=== PATIENT | female | born 1985 | race Caucasian/White ===

== ENCOUNTER 2017-07-01 20:19 | Emergency (ER) | payer MEDICAID, SELFPAY ==
[2017-07-01 20:21] VITALS: BP 147/98; PULSE 87; RESP 16; TEMP 36.5; O2SAT 97; BMI 38.1
--- NOTE | 2017-07-01 20:29 | ED.RN ---
RN BRIEFLY DISCUSSED PT SX WITH DR. CARDOSO. VERBAL ORDER FOR FLU SWAB GIVEN.
--- NOTE | 2017-07-01 20:33 | RAD_ITS ---
STUDY: X-RAY CHEST REASON FOR EXAM: Female, 31 years old. Influenza TECHNIQUE: PA COMPARISON: None. FINDINGS: There is asymmetric interstitial thickening in the right lower lobe possibly representing interstitial pneumonitis. There is no focal lobar infiltrate. There is no demonstrated pleural abnormality. Normal size heart. Normal mediastinum and rahat. Normal visualized pulmonary arteries. Normal visualized aortic arch and descending thoracic aorta. Normal visualized thoracic spine. Normal visualized ribs, clavicles, and shoulders. There is no demonstrated abnormality of the visualized soft tissue structures of the upper abdomen. RAD/Chest 1 View (Portable) IMPRESSION: Findings which may be consistent with mild viral pneumonitis in the right lower lobe Electronically Signed: Jamal Brown MD at 21:10 EST , Service support ,
--- NOTE | 2017-07-01 22:45 | ED.VISSUMM ---
- ER Visit Summary Date of Service: 07/01/17 Chief Complaint: Cough History of Present Illness: The patient is a 31 F who sees the [facility]. She does not remember the name of her doctor. She reports she has a cough began 2 days ago. Is productive of yellow sputum without blood. She has had chills, but no fever. She reports that she has mild difficulty breathing and that she is not able to smoke as much. She has been wheezing. She does not use an inhaler. She complains of congestion, sinus drainage, sore throat that is 7 out of 10 severity, a headache that is behind her eyes that is 7 out of 10 severity, and watery eyes. Physical Examination: Vitals: Stable. Afebrile. General: Well-nourished and well-developed. Head: Normocephalic atraumatic. HEENT: Pharyngeal erythema without tonsillar exudate or enlargement. No cervical lymphadenopathy. TMs are within normal limits bilaterally. Neck: Supple, no lymphadenopathy. No JVD. Nontender. Cardiovascular: Regular rate and rhythm. No murmurs. Respiratory: No respiratory distress. Clear to auscultation bilaterally. Abdominal: Soft, nontender, nondistended, normal bowel sounds. No guarding, rebound, or peritoneal signs. Back: Nontender. Extremities: Nontender, no edema. Skin: Normal color, no rash. Neurologic: Alert and oriented ?3. Cranial nerves II through XII are intact. Normal strength and sensation. Psych: Normal affect. Test Results: Chest x-ray shows no infiltrate. Emergency Department Course and Treatment: Patient refused pain medications or decongestants. Treatment Plan: Patient will be discharged with an albuterol inhaler to use as needed for her wheezing. Symptomatic treatment otherwise. Follow-up her primary care physician 1 week if not improving. Disposition: To home in improved and stable condition. Impression:. URI. 2. Tobacco abuse. This note was generated with [employer] dictation software. It may contain incorrect words, spelling, and punctuation that were not noted in review of the chart prior to signing ED Disposition - Plan for ED Patient: Chief Complaint: Shortness of Breath Instructions: ED Upper Resp Infec No Abx Tx Prescriptions: Albuterol Inhaler [Ventolin Hfa] 1 - 2 puff INHALATION Q4H PRN PRN #1 inhaler PRN Reason: Wheezing Referrals: Doctor,Your [STAFF PHYSICIAN] - 1 Week if not improving
[2017-07-01 22:55] VITALS: O2SAT 96
[2017-07-01 22:58] VITALS: PULSE 86; RESP 18; O2SAT 100
== END 2017-07-01 23:10 | disposition home or self-care (01) ==
LOC: ED 23:07
PROVIDERS: Emergency Provider Emergency Medicine; Family Provider Family Medicine; PCP Family Medicine
DX: J06.9 Acute upper respiratory infection, unspecified (principal); Z72.0 Tobacco use
CPT/HCPCS: 71045; 87804; 94760; 99282

== ENCOUNTER 2018-06-27 21:40 | Emergency (ER) | payer MEDICAID, SELFPAY ==
[2018-06-27 21:43] VITALS: BP 120/81; PULSE 105; RESP 17; TEMP 36.7; O2SAT 98; BMI 39.3
--- NOTE | 2018-06-27 22:06 | ED.VISSUMM ---
- ER Visit Summary Date of Service: 06/27/18 Chief Complaint: Dental pain History of Present Illness: The patient is a 32 F with dental pain that started this morning. It came on gradually. The pain is increasing in severity and severe at times. Patient was seen at urgent care and treated with amoxicillin and ibuprofen. She presents today because her pain is not under control. She is concerned for infection. She does report some swollen lymph nodes and she says the pain radiates to her left ear. She is planning to follow-up with the dental clinic tomorrow. Physical Examination: Afebrile and vital signs unremarkable. Patient has focal dental decay. No abscess. No trismus or tongue elevation. Gums appear unremarkable. Airway intact. Left anterior cervical lymphadenopathy noted. No meningeal signs. HEENT exam otherwise on normal. Skin normal. Test Results: None performed Emergency Department Course and Treatment: Patient advised to continue antibiotics and ibuprofen. She was given a short course of Gooding for pain control. She had no risk factors and her prescription database report showed no active controlled substances. Follow-up with dental tomorrow. Treatment Plan: As above Disposition: Discharge Impression: 1. Dental pain This note was generated with [employer] dictation software. It may contain incorrect words, spelling, and punctuation that were not noted in review of the chart prior to signing ED Disposition - Plan for ED Patient: Instructions: ED Tooth Pain Prescriptions: Hydrocodone Bitart/Apap 5-325 [Gooding 5MG-325MG] 1 tab PO Q6H PRN PRN 2 Days #8 tab PRN Reason: Pain Referrals: Corin Car [NON-STAFF] -
--- NOTE | 2018-06-27 22:06 | ED.DEP ---
ED Disposition - Plan for ED Patient: Instructions: ED Tooth Pain Prescriptions: Hydrocodone Bitart/Apap 5-325 [Elizabeth 5MG-325MG] 1 tab PO Q6H PRN PRN 2 Days #8 tab PRN Reason: Pain Referrals: Corin Car [NON-STAFF] -
[2018-06-27] MEDS: HYDROcodone Bitartrate/Apap 5/325 Tablet PO (22:21)
== END 2018-06-27 22:31 | disposition home or self-care (01) ==
LOC: ED 22:30
PROVIDERS: Emergency Provider Emergency Medicine; Family Provider Family Medicine; PCP Family Medicine
DX: K08.89 Other specified disorders of teeth and supporting structures (principal); H92.02 Otalgia, left ear; K02.9 Dental caries, unspecified; Z72.0 Tobacco use; F12.90 Cannabis use, unspecified, uncomplicated
CPT/HCPCS: 99282

== ENCOUNTER 2018-11-23 21:58 | Emergency (ER) | payer MEDICAID, SELFPAY ==
[2018-11-23 21:59] VITALS: BP 124/77; PULSE 88; RESP 16; TEMP 36.2; O2SAT 99; BMI 39.5
--- NOTE | 2018-11-23 22:56 | ED.VISSUMM ---
- ER Visit Summary Date of Service: 11/23/18 Chief Complaint: Foreign body sensation right eye History of Present Illness: The patient is a 33 F who presents with foreign body sensation right eye. She felt like something with her eyes and it was itching and watering. She was rubbing it. After that time she developed increased swelling around her eyes so presented here for evaluation. No history of injury. She does not wear contacts or glasses. She denies any visual changes/blurry vision. Physical Examination: Afebrile vitals unremarkable Patient does have some right periorbital edema Eyelids everted, no foreign body Diffuse conjunctival injection on the right, no chemosis, no matting she does have some watering Slit-lamp examination with tetracaine and floor seen shows no focal dye uptake no corneal abrasion Extraocular motion intact without pain or palsy PERRL, EOMI Test Results: Slit-lamp examination as above. Emergency Department Course and Treatment: Examination is consistent with conjunctivitis. We will treat with ophthalmic antibiotics. She understands to return for new or worsening symptoms. She was instructed on signs and symptoms to monitor for, conditions which should prompt return here to the emergency department. Treatment Plan: [] Disposition: Discharge Impression: Conjunctivitis This note was generated with [employer] dictation software. It may contain incorrect words, spelling, and punctuation that were not noted in review of the chart prior to signing ED Disposition - Plan for ED Patient: Referrals: Jamal Almendarez MD [Primary Care Provider] -
--- NOTE | 2018-11-23 22:58 | ED.DEP ---
ED Disposition - Plan for ED Patient: Instructions: CONJUNCTIVITIS, Non-Specific Referrals: Jamal Almendarez MD [Primary Care Provider] -
[2018-11-23 23:09] VITALS: RESP 14
== END 2018-11-23 23:09 | disposition home or self-care (01) ==
PROVIDERS: Emergency Provider Emergency Medicine; Family Provider Family Medicine; PCP Family Medicine
DX: H10.9 Unspecified conjunctivitis (principal)
CPT/HCPCS: 99282

== ENCOUNTER 2019-04-22 11:24 | Emergency (ER) | payer MEDICAID, SELFPAY ==
[2019-04-22 11:25] VITALS: BP 160/103; PULSE 95; RESP 17; TEMP 37; O2SAT 100; BMI 38.3
--- NOTE | 2019-04-22 11:41 | CT_ITS ---
STUDY: CT BRAIN WITHOUT CONTRAST REASON FOR EXAM: Female, 33 years old. LT FACIAL NUMBNESS SINCE THIS AM/HX OF MENINGIOMA but no surgery RADIATION DOSAGE (If Supplied By Facility): CTDIvol = ( 44.99 ) mGy, DLP = ( 812.98 ) mGycm TECHNIQUE: Transaxial CT imaging of the brain was performed without administration of intravenous contrast material. Individualized dose optimization techniques were used for this CT. COMPARISON: No relevant priors. FINDINGS: Normal soft tissue structures. Normal calvarium. Normal size ventricles and extra-axial spaces for the patient''s age. Normal white matter tracts of the cerebral hemispheres. Normal basal ganglia and thalami. Normal brainstem. Normal cerebellum. There is no intracranial hemorrhage. There are no findings of an acute ischemic infarction. Normal visualized paranasal sinuses. CT/Brain/Head without Contrast IMPRESSION: Normal unenhanced CT scan of the brain. Electronically Signed: Alison Martinez, at 12:01 EST Tel , Service support ,
--- NOTE | 2019-04-22 11:51 | ED.VIS.GEN ---
History of Present Illness Chief Complaint: Numb/Ting Narrative: Patient presenting for evaluation secondary to facial numbness. Patient reports that this morning she woke up and noted that she had a feeling of the left side of her face including her left forehead left cheek and left jaw that feels numb. She states is a feeling as if she just had a dental procedure. She denies any weakness. She denies any difficulty with closing her eyes or drinking or swallowing. She denies any other numbness or weakness in her body. She denies any visual changes or speech difficulty. Patient does have an underlying history of a left-sided meningioma, but she has not had imaging on it since 2017. She has a history of migraine headaches, but states that she has not been having any sort of increased frequency of these. She denies any facial rashes or ear pain. Symptoms have no exacerbating relieving factors. Past Medical History - Allergies and Home Meds Allergies/Adverse Reactions: Allergies No Known Allergies Allergy (Verified 04/22/19 11:24) Primary Care Physician: Jamal Almendarez MD [Primary Care Provider] - Past Medical History: - - Meningioma Surgical History: no surgical history Smoking Status: Current every day smoker - Family History Maternal Family History: Reports: No pertinent history Review of Systems All systems negative except as indicated General: Denies: Chills, Fever, Sweats Eyes: Denies: Visual changes - bilaterally, Diplopia ENT: Denies: Rhinorrhea, Sore throat Cardiovascular: Denies: Chest pain, Palpitations Respiratory: Denies: Dyspnea, Cough, Dyspnea on exertion Gastrointestinal: Denies: Abdominal pain, Nausea, Vomiting, Diarrhea, Melena, Hematochezia Genitourinary: Denies: Dysuria, Hematuria, Frequency Musculoskeletal: Denies: Back pain, Extremity Pain Skin: Denies: Rash, Wounds Neurological: Reports: Parasthesia Physical Exam Vital Signs/Narrative: Vital Signs Temp Pulse Resp BP Pulse Ox 04/22/19 11:25 98.6 F 95 17 160/103 H 100 Inital Vital Signs reviewed: Yes General: Well nourished, Well developed, No Acute Distress Head: Normocephalic, Atraumatic Eyes: Perrl, EOMI ENT: Moist mucous membranes, No rhinorrhea, TM's clear Neck: Supple, Nontender Cardiovascular: Regular rate, Regular rhythm, No murmurs Respiratory: No distress, CTA bilaterally, Chest nontender Abdomen: Soft, Nontender, Nondistended, Normal bowel sounds Back: Nontender, Normal Inspection Extremities: Nontender, No edema Skin: Normal color, No rash Neurological: Alert, Oriented x3, Cranial nerves II-XII grossly intact, Normal Strength, - - Patient complains of paresthesias of the left forehead cheek and jaw. Normal symmetric movements of the facial muscles. No evidence of droop. Psychological: Normal affect, Normal Mood Diagnostic/Tx/Re-eval - Medical Decision Making Patient presented secondary to left-sided facial numbness. Aside from her reported paresthesias she has a normal neurologic exam. This would seem to be consistent maybe with a early Dalton's palsy, but the patient does have a history of a meningioma and has not had recent imaging, so CT of the brain was performed. This was found to be negative per radiology. 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 Patient will be placed on a course of prednisone. She was given eye care instructions should she develop weakness. Patient was discharged in stable condition. ED Disposition - Plan for ED Patient: Disposition: Home or Assisted Living Diagnosis: Dalton's palsy Instructions: Dalton's Palsy Prescriptions: Prednisone [Deltasone] 40 mg PO DAILY #14 tab Prescription Printed Referrals: Jamal Almendarez MD [Primary Care Provider] - As Needed
[2019-04-22 12:06] VITALS: BP 129/76; PULSE 90; RESP 16; O2SAT 100
== END 2019-04-22 12:26 | disposition home or self-care (01) ==
PROVIDERS: Emergency Provider Emergency Medicine; Family Provider Family Medicine; PCP Family Medicine
DX: G51.0 Bell's palsy (principal); F17.200 Nicotine dependence, unspecified, uncomplicated
CPT/HCPCS: 70450; 99282

== ENCOUNTER 2019-10-06 20:43 | Emergency (ER) | payer MEDICAID, SELFPAY ==
[2019-10-06 20:43] VITALS: BP 144/89; PULSE 89; RESP 18; TEMP 36.6; O2SAT 98; BMI 38.2
--- NOTE | 2019-10-06 20:58 | RAD_ITS ---
STUDY: X-RAY - LEFT KNEE REASON FOR EXAM: Female, 34 years old. PT STATES SHE HEARD HER L KNEE POP WHEN SHE WAS BENDING DOWN TECHNIQUE: 4 view(s) of the knee. COMPARISON: None. FINDINGS: Normal visualized distal femur. Normal visualized proximal tibia and fibula. Normal proximal tibiofibular articulation. Normal medial femorotibial compartment. Normal lateral femorotibial compartment. Normal patellofemoral articulation. The soft tissue structures are unremarkable. RAD/Knee 4 or More Views IMPRESSION: Normal x-ray examination of the knee. Electronically Signed: Steve Camejo MD at 21:22 EDT Tel , Service support ,
--- NOTE | 2019-10-06 22:32 | ED.VIS.LOWEX ---
History of Present Illness Chief Complaint: Lower Extremity Injury Informant: Patient Occurred: Days - 2 Mechanism/Context: - - Was crouching down in order to sit style Context: Sudden Onset - Daphne a pop or crack with sudden pain that has been persistent Timing: Continuous Quality of Pain: Aching Location: Left knee Current Severity: Mild Maximum Severity: Severe Worsened by: Bending knee, walking Relieved by: Resting, remaining still Associated Symptoms: Negative for: Parasthesia, Weakness, Loss of Funtion Narrative: Denies any other injury. No redness or significant swelling that she is noted. No numbness or tingling distally. No calf pain. - Past Medical History (1) Ureteral calculus, right Status: Suspected Comment: Presents to the hospital with intractable severe pain from a 11 mm stone in the distal right ureter Past Medical History - Allergies and Home Meds Allergies/Adverse Reactions: Allergies No Known Allergies Allergy (Verified 10/06/19 20:45) Primary Care Physician: Jamal Almendarez MD [Primary Care Provider] - Surgical History: no surgical history Lives: With Family Smoking Status: Current every day smoker - Family History Maternal Family History: Reports: No pertinent history Review of Systems General: Denies: Chills, Fever, Sweats Musculoskeletal: Reports: Extremity Pain. Denies: Neck pain, Back pain, Swelling Skin: Denies: Rash, Wounds Neurological: Denies: Headache, Weakness, Numbness Physical Exam Vital Signs/Narrative: Vital Signs Temp Pulse Resp BP Pulse Ox 10/06/19 20:43 97.9 F 89 18 144/89 H 98 - Extremity Exam Left Knee: Limited ROM - Only limited at extreme of flexion., - - No excessive warmth or edema/effusion. Tender in the area of the suprapatellar pocket. No pretibial edema, erythema, lesion. All ligaments stable with short endpoints, only pain at the ACL with stressing. Extensor mechanism intact. All compartments soft and nondistended with no calf tenderness. Neurovascular intact distally with excellent 2+/4 dorsalis pedis pulse. General: Well nourished, Well developed, - - NAD Head: Normocephalic, Atraumatic Skin: Normal color, No rash, No Trauma Neurological: Alert, Oriented x3, Cranial nerves II-XII grossly intact, Normal Strength, Normal Sensation Psychological: Normal affect, Normal Mood Diagnostic/Tx/Re-eval Clinical Impression(s) from Imaging Studies Knee X-Ray 10/06/19 20:58 IMPRESSION: Normal x-ray examination of the knee. Electronically Signed: Steve Camejo MD at 21:22 EDT Tel , Service support , - Medical Decision Making Consistent with a sprain, differential includes injury to the ACL and/or meniscus, in addition to quadriceps strain. At this time since x-rays are negative, recommend Thor wrap, anti-inflammatories, ice, rest, follow-up with orthopedics if persistent. She is comfortable with that plan. ED Disposition - Plan for ED Patient: Disposition: Home or Assisted Living Diagnosis: Left knee sprain Instructions: ED Sprain Knee Prescriptions: Naproxen [Naprosyn] 500 mg PO BID PRN #20 tab Transmission Status: Pending to [id number] Referrals: Jamal Almendarez MD [Primary Care Provider] - Reid Soto MD [STAFF PHYSICIAN] - 1 Week if not improving
[2019-10-06] MEDS: Naproxen 500 MG Tablet PO (22:41)
[2019-10-06 22:43] VITALS: PULSE 80; RESP 16; O2SAT 99
== END 2019-10-06 22:44 | disposition home or self-care (01) ==
PROVIDERS: Emergency Provider Emergency Medicine; PCP Family Medicine
DX: S83.92XA Sprain of unspecified site of left knee, initial encounter (principal); X50.9XXA Other and unspecified overexertion or strenuous movements or postures, initial encounter; Y93.89 Activity, other specified; Y92.89 Other specified places as the place of occurrence of the external cause; Y99.9 Unspecified external cause status; F17.200 Nicotine dependence, unspecified, uncomplicated; Z87.442 Personal history of urinary calculi
CPT/HCPCS: 73564; 99283

== ENCOUNTER 2020-09-23 10:29 | Emergency (ER) | payer MEDICAID, SELFPAY ==
[2020-09-23 10:30] VITALS: BP 154/95; PULSE 96; RESP 17; TEMP 36.2; O2SAT 100; BMI 37.1
[2020-09-23 10:32] VITALS: BP 154/95; PULSE 96; RESP 17; TEMP 36.2; O2SAT 100
--- NOTE | 2020-09-23 10:55 | CT_ITS ---
STUDY: CT ABDOMEN AND PELVIS WITHOUT CONTRAST REASON FOR EXAM: Female, 35 years old. Left flank pain RADIATION DOSAGE (If Supplied By Facility): CTDIvol = ( 16.15 ) mGy, DLP = ( 859.48 ) mGycm TECHNIQUE: Transaxial images were obtained from the dome of the diaphragm to the symphysis pubis without oral contrast, and without intravenous contrast. Sagittal and coronal images were reconstructed. Individualized dose optimization techniques were used for this CT. COMPARISON: None. FINDINGS: The visualized lung bases are unremarkable. The visualized portions of the heart are within normal limits. 5.5 cm low-density lesion in the posterior segment of the right lobe of the liver new since previous exam could represent cyst. Solid mass cannot be excluded. Questionable another smaller lesion in the right lobe. Normal gallbladder and extrahepatic biliary system. Normal spleen. Normal pancreas. Normal bilateral adrenal glands. 2 mm nonobstructing stone in the right kidney. No evidence of right hydronephrosis. Moderate left hydronephrosis and hydroureter. Normal visualized stomach. Normal caliber small bowel loops. Fecal retention. The descending colon is not well-distended. Normal colon. There are surgical clips in the region of the appendix consistent with a prior appendectomy. Normal abdominal aorta. Normal inferior vena cava. Normal retroperitoneum. PARIS catheter in the bladder. The bladder is not distended. Multiple pelvic calcifications likely due to phleboliths. Prominent uterus with mass in the fundus of the uterus could represent uterine fibroid significantly changed in appearance is exam. Surgical clip posterior to the uterus. Normal abdominal wall. No demonstrated acute osseous changes. CT/Abdomen/Pelvis without Cont IMPRESSION: 1. Liver lesion as described above. Correlation with ultrasound is recommended. 2. Moderate left hydronephrosis and hydroureter with multiple pelvic calcifications likely due to phleboliths. Stone is difficult to exclude. 3. Probable uterine fibroid. Electronically Signed: Dk Aceves MD at 12:55 EDT Tel , Service support ,
--- NOTE | 2020-09-23 11:05 | EX.ED.DYSGE1 ---
HPI History of Present Illness Chief Complaint: Complaint Informant: patient Onset/Context/Timing Onset: Today Context: Sudden Onset Timing: Continuous Quality: Sharp Location: Suprapubic and left flank Worsened by: Laying flat Relieved by: Bending forward Narrative Narrative: Patient presents with lower abdominal pain that began this morning. Patient states this feels similar to prior kidney stones. Patient states pain radiates to her left flank area. Patient states she has been having difficulty urinating this morning. Patient states that she feels like she has to urinate all the time but only is able to urinate small amounts. Patient does admit to some nausea and vomiting. Patient denies any diarrhea. Patient denies any dysuria or hematuria. PFSH PFSH Medical History Anxiety Depression Kidney stones Migraines Smoker Home Medications naproxen 500 mg PO BID PRN #20 tab 10/06/19 [Rx Last Taken Unknown] hydrocodone-acetaminophen 1 tab PO Q6H PRN PRN 3 Days #10 tablet 09/23/20 [Rx Last Taken Unknown] Allergy/AdvReac Type Severity Reaction Status Date / Time No Known Allergies Allergy Verified 09/23/20 10:30 Surgical History History of appendectomy Social History Smoking Status: Current every day smoker tobacco type: cigarettes ROS ROS ED Constitutional Constitutional ED: Denies chills or fever(s) Eyes Eyes: Denies blurry vision or change in vision ENT ENT ED: Denies rhinorrhea or sore throat Cardiovascular Cardiovascular: Denies chest pain or palpitations Respiratory/Chest Respiratory/Chest: Denies cough or dyspnea Gastrointestinal Gastrointestinal: Reports abdominal pain, nausea and vomiting Genitourinary Genitourinary ED: Denies dysuria or hematuria Musculoskeletal Musculoskeletal: Reports back pain; Denies neck pain Integumentary Denies abscess or rash Neurologic Neurologic: Denies headache(s) or weakness Allergic/Immunologic Allergic/Immunologic ED: Denies mouth swelling or urticaria EXAM Physical Exam Const Vital Signs: 09/23/20 10:30 09/23/20 10:32 Temperature 97.2 F L 97.2 F L Temperature Source Temporal Temporal Pulse Rate 96 96 Respiratory Rate 17 17 Blood Pressure 154/95 H 154/95 H Blood Pressure Mean 114 114 Pulse Ox 100 100 Oxygen Delivery Method Room Air Room Air Positive well nourished, well developed and obese General Appearance ED: well developed Nutritional Appearance: obese HEENT Reports moist mucous membranes Neck supple and no JVD Resp normal respiratory effort and clear to auscultation bilaterally Cardio regular rate and regular rhythm GI normal to inspection, nondistended, normoactive bowel sounds Palpation: soft and tender suprapubic; Negative for guarding or rebound tenderness present Back/Spine General Back: CVA tenderness left Neuro oriented x3, CN's II-XII intact bilaterally and no sensory deficits noted Sensorium / Orientation: alert Motor Exam: strength 5/5 throughout Psych mental status grossly normal MDM MDM MDM Narrative Medical decision making narrative: CBC shows a slight anemia with a hemoglobin of 10.7 and hematocrit 35.0. Platelets were slightly elevated at 479. Comprehensive metabolic profile was within normal limits. Serum hCG was negative. CT scan of the abdomen pelvis was obtained. There is left hydroureter and hydronephrosis likely due to ureteral calculus. This was interpreted by the radiologist and reviewed by myself. Urinalysis does not show any evidence of urinary tract infection. Patient was given IV fluids, Toradol, and Zofran initially. Patient is feeling better on reevaluation. Patient was instructed to drink plenty of fluids. Patient was given a prescription for short course of [place]. Patient was instructed to follow-up with her primary care physician in 5 to 7 days. Patient understood and was agreeable with the plan. All questions were answered. Lab Data Attestation: I reviewed the patient's lab results. Labs: Laboratory Results - last 24 hr 09/23/20 09/23/20 09/23/20 11:15 11:15 11:15 WBC 7.6 RBC 4.33 Hgb 10.7 L Hct 35.0 L MCV 80.8 L MCH 24.7 L MCHC 30.6 L RDW Std Deviation 47.5 H RDW Coeff of Stacey 16.0 H Plt Count 479 H MPV 9.8 Immature Gran % (Auto) 0.400 Neut % (Auto) 71.4 H Lymph % (Auto) 18.0 L [place] % (Auto) 5.8 Eos % (Auto) 3.9 Baso % (Auto) 0.5 Absolute Neuts (auto) 5.4 Absolute Lymphs (auto) 1.37 Nucleated RBC % 0 Sodium 139 Potassium 3.8 Chloride 104 Carbon Dioxide 24.0 Anion Gap 11 BUN 16 Creatinine 0.84 Estim Creat Clear Calc 85.72 Est GFR (MDRD) Af Amer 101 Est GFR (MDRD) Non-Af 83 BUN/Creatinine Ratio 19.1 Glucose 112 H Calcium 8.9 Total Bilirubin 0.20 AST 12 L ALT 25 Alkaline Phosphatase 98 Total Protein 7.8 Albumin 4.0 Globulin 3.8 Albumin/Globulin Ratio 1.1 Serum , Qual NEGATIVE Urine Color Urine Clarity Urine pH Ur Specific [place] Urine Protein Urine Glucose (UA) Urine Ketones Urine Occult Blood Urine Nitrite Urine Bilirubin Urine Urobilinogen Ur Leukocyte Esterase Urine RBC Urine WBC Ur Squamous Epith Cells Urine Bacteria Urine Mucus 09/23/20 11:55 WBC RBC Hgb Hct MCV MCH MCHC RDW Std Deviation RDW Coeff of [place] Plt Count MPV Immature Gran % (Auto) Neut % (Auto) Lymph % (Auto) [place] % (Auto) Eos % (Auto) Baso % (Auto) Absolute Neuts (auto) Absolute Lymphs (auto) Nucleated RBC % Sodium Potassium Chloride Carbon Dioxide Anion Gap BUN Creatinine Estim Creat Clear Calc Est GFR (MDRD) Af Amer Est GFR (MDRD) Non-Af BUN/Creatinine Ratio Glucose Calcium Total Bilirubin AST ALT Alkaline Phosphatase Total Protein Albumin Globulin Albumin/Globulin Ratio Serum , Qual Urine Color Yellow Urine Clarity Sl. Cloudy Urine pH 5.0 Ur Specific [place] 1.025 Urine Protein 30 H Urine Glucose (UA) Normal Urine Ketones Negative Urine Occult Blood 250 H Urine Nitrite Negative Urine Bilirubin Negative Urine Urobilinogen Normal Ur Leukocyte Esterase 25 H Urine RBC 10-25 SEEN Urine WBC 0-5 SEEN Ur Squamous Epith Cells 0-5 SEEN Urine Bacteria 1+ Urine Mucus 1+ Radiography Diagnostic Testing: Radiology Impression Abdomen/Pelvis CT 09/23/20 10:55 IMPRESSION: 1. Liver lesion as described above. Correlation with ultrasound is recommended. 2. Moderate left hydronephrosis and hydroureter with multiple pelvic calcifications likely due to phleboliths. Stone is difficult to exclude. 3. Probable uterine fibroid. Electronically Signed: Dk Aceves MD at 12:55 EDT Tel , Service support , Discharge Plan Triage Chief Complaint: Complaint ED Provider: John Amezquita Dx/Rx/DC Orders Clinical Impression: Left ureteral calculus Instructions: ED Kidney Stone w/ Colic Prescriptions: New hydrocodone-acetaminophen [hydrocodone-acetaminophen] 1 TABLET tablet 1 tab PO Q6H PRN PRN (Reason: Pain) 3 Days Qty: 10 RF: 0 No Action naproxen 500 MG tablet 500 mg PO BID PRN Qty: 20 RF: 0 Primary Care Provider: Jamal Almendarez Referrals: Jamal Almendarez MD [Primary Care Provider] - 5-7 Days Disposition Disposition: Home, self care
[2020-09-23] MEDS: Ketorolac 30 MG/ML Syringe IV (11:16)
[2020-09-23] MEDS: 0.9% Normal Saline 1,000 ML 1000 ML IV (11:16)
[2020-09-23] MEDS: Ondansetron 4 MG/2 ML Vial IV (11:16)
[2020-09-23 11:41] LABS: Absolute Lymphocyte Count 1.37 X10^3/uL (0.83-4.51); Absolute Neutrophil Count 5.4 X10^3/uL (2.0-7.7); Basophil# 0.04 X10^3/uL; Basophil% 0.5 % (0-1); Eosinophils% 3.9 % (0-5); Hemoglobin 10.7 g/dL (12.0-15.0); Lymphocyte # 1.37 X10^3/ul (0.83-4.51); Mean Corp Hgb Conc 30.6 g/dL (32-36); Mean Corpuscular Hgb 24.7 pg (27.0-32.0); Mean Corpuscular Volume 80.8 fL (81-99); Mean Platelet Vol. 9.8 fl (6.2-12.0); Monocyte# 0.44 X10^3/uL; Monocyte% 5.8 % (0-10); NRBC Flagged by Analyzer 0 % (0-5); Neutrophil # 5.43 X10^3/uL (2.7-7.7); Neutrophil % 71.4 % (47-70); Platelet Count 479 K/mm3 (150-450); RBC Distribution Width SD 47.5 fl (35.1-43.9); Red Blood Count 4.33 M/mm3 (4.2-5.4); White Blood Count 7.6 K/mm3 (4.4-11.0)
[2020-09-23 11:46] LABS: Internal QC Validated? YES +Cl - CLEAR BKGD; Pregnancy, Serum, hCG Quali. NEGATIVE Negative
[2020-09-23 11:55] LABS: ALB/GLOB Ratio 1.1 RATIO (0.9-2.4); AST(SGOT) 12 U/L (15-37); Alanine Aminotransfer ALT/SGPT 25 U/L (13-56); Alkaline Phosphatase 98 U/L (45-117); Anion Gap 11 (5-15); BUN 16 mg/dL (7-18); BUN/Creat Ratio 19.1 RATIO (10-20); Calcium,Total 8.9 mg/dL (8.5-10.1); Chloride 104 mmol/L (98-107); Creatinine, Serum 0.84 mg/dL (0.55-1.02); EST Glomerular Filtration Rate 83 mL/min (>60); Est Glom Filt Rate - Afr Amer 101 mL/min (>60); Estimated Creatinine Clearance 85.72 ml/min; Globulin 3.8 g/dL (2.2-4.2); Glucose 112 mg/dL (74-106); Potassium 3.8 mmol/L (3.5-5.1); Protein, Total 7.8 g/dL (6.4-8.2); Sodium Level 139 mmol/L (136-145)
[2020-09-23 12:07] LABS: Color, Urine Yellow (Yellow); Glucose, Dipstick Normal (Normal); Ketone-Dipstick Negative (Negative); Leukocyte Esterase-Dipstick 25 /ul (Negative); Nitrite-Dipstick Negative (Negative); Occult Blood-Urine 250 /ul (Negative); Protein-Dipstick 30 mg/dl (Negative); Specific Gravity, Urine 1.025 (1.002-1.030); Urine Bilirubin Dipstick Negative (Negative); Urine Clarity Sl. Cloudy (Clear); Urine Urobilinogen Normal (Normal)
[2020-09-23 12:16] LABS: Bacteria 1+ /hpf (None Seen); Mucous, Urine 1+ /hpf (<or=2+); Red Blood Cells-Urine 10-25 SEEN /hpf (0-5); Squamous Epithelial Cells - UA 0-5 SEEN /hpf (5-10); White Blood Cells 0-5 SEEN /hpf (0-5)
[2020-09-23 13:59] VITALS: BP 131/83; PULSE 73; RESP 16; O2SAT 100
[2020-09-23] MEDS: HYDROcodone Bitartrate/Apap 5/325 Tablet PO (14:07)
== END 2020-09-23 14:12 | disposition home or self-care (01) ==
PROVIDERS: Emergency Provider Emergency Medicine; PCP Family Medicine
DX: N13.2 Hydronephrosis with renal and ureteral calculous obstruction (principal); K76.9 Liver disease, unspecified; E66.9 Obesity, unspecified; F17.210 Nicotine dependence, cigarettes, uncomplicated; Z87.442 Personal history of urinary calculi
CPT/HCPCS: 51702; 74176; 80053; 81001; 84703; 85025; 96361; 96374; 96375; 99284; J7030; J2405

== ENCOUNTER 2021-01-27 21:16 | Emergency (ER) | payer MEDICAID, SELFPAY ==
[2021-01-27 21:17] VITALS: BP 135/89; PULSE 102; RESP 16; TEMP 35.8; O2SAT 100; BMI 36.9
--- NOTE | 2021-01-27 22:07 | EX.ED.DYSGE1 ---
HPI History of Present Illness Chief Complaint: Rash Informant: patient Onset/Context/Timing Onset: Today and Hours Context: Gradual Onset Timing: Continuous Current Severity: Mild Maximum Severity: Mild Narrative Narrative: she said it was wet Tonight she was sitting outside on her porch [id number] female history of meningioma and depression. and when she got up she noticed a rash on buttock and itching. She is washed off since that time. cement she denies any other complaints. She said they have been sprayed off the porch with water and noticed some type of residue came off of it. Rash Prior similar symptoms: No Recent Illness/Hospitalization: No PFSH PFSH Medical History Anxiety Depression Kidney stones Migraines Smoker Home Medications citalopram [Celexa] 30 mg PO DAILY 01/27/21 [History Last Taken Unknown] prednisone 40 mg PO DAILY 3 Days #6 tab 01/27/21 [Rx Last Taken Unknown] Allergy/AdvReac Type Severity Reaction Status Date / Time No Known Allergies Allergy Verified 01/27/21 21:17 Surgical History History of appendectomy Social History Smoking Status: Current every day smoker tobacco type: cigarettes ROS ROS ED ROS Narrative Denies recent illness. Review of Systems ROS Unobtainable: Denies due to encephalopathy Constitutional Constitutional ED: Denies fever(s) Eyes Eyes: Denies change in vision ENT ENT ED: Denies ear pain Cardiovascular Cardiovascular: Denies chest pain Respiratory/Chest Respiratory/Chest: Denies dyspnea Gastrointestinal Gastrointestinal: Denies abdominal pain Genitourinary Genitourinary ED: Denies dysuria Musculoskeletal Musculoskeletal: Denies myalgias Integumentary Reports rash Neurologic Neurologic: Denies headache(s) Psychiatric Psychiatric: Denies depression Endocrine Endocrinology: Denies polyuria Allergic/Immunologic Allergic/Immunologic ED: Denies urticaria EXAM Physical Exam Narrative Exam Narrative: Well-appearing 35 female dressed vital signs stable afebrile. Buttocks and posterior legs she has a red raised rash consistent with contact dermatitis. It does sudha. She states it itches. There is no cellulitis. There is no abscesses. Otherwise heart with abdominal exam unremarkable. Const Vital Signs: 01/27/21 21:17 Temperature 96.5 F L Temperature Source Temporal Pulse Rate 102 H Respiratory Rate 16 Blood Pressure 135/89 H Blood Pressure Mean 104 Pulse Ox 100 Oxygen Delivery Method Room Air Positive well nourished, well developed and obese; Negative for cachectic, contractures or unkempt General Appearance ED: well developed and NAD; Negative for unkempt, cachectic or contractures Nutritional Appearance: obese; Negative for cachectic HEENT Reports moist mucous membranes Negative for trauma or tenderness Eyes PERRL and EOMs intact bilaterally Neck no lymphadenopathy, supple and no JVD Chest Wall inspection of chest normal and palpation of chest normal Resp normal respiratory effort and clear to auscultation bilaterally Cardio regular rate, regular rhythm, S1 normal heart sound, S2 normal heart sound and no murmurs GI normal to inspection, nondistended, normoactive bowel sounds, non-tender and non-distended Auscultation: normoactive bowel sounds Palpation: soft Back/Spine no CVA tenderness Extremity normal to inspection General Extremety ED: Negative for edema or tenderness General Extremity: Negative for edema Neuro oriented x3 Sensorium / Orientation: alert Motor Exam: strength 5/5 throughout Psych mental status grossly normal Appearance: Negative for unkempt Skin no wounds Skin Narrative: Contact dermatitis buttocks and hamstrings. Rashes: rashes noted MDM MDM MDM Narrative Medical decision making narrative: Rash consistent with contact dermatitis. Treated with prednisone. Discharged with 3 days of prednisone and Benadryl as needed. Discharge Plan Triage Chief Complaint: Rash ED Provider: Alexis Chase Dx/Rx/DC Orders Clinical Impression: Contact dermatitis Instructions: ED Contact Dermatitis Prescriptions: New prednisone 20 mg tablet 40 mg PO DAILY 3 Days Qty: 6 RF: 0 No Action citalopram [Celexa] 20 mg Tablet 30 mg PO DAILY RF: 0 Primary Care Provider: Chris Dill Referrals: Chris Dill DO [Primary Care Provider] - 3-5 Days if not improving Activity Restrictions/Additional Instructions: Benadryl for itching and the rash and you may fill the prescription for prednisone if the rash does not resolve in the next 24 hours. If you need to use the steroid 40 mg once a day for 3 more days. Follow-up if not improving or return if a lot worse. Disposition Disposition: Home, Self Care
[2021-01-27] MEDS: predniSONE 20 MG Tablet 60 MG PO (22:15)
[2021-01-27 22:19] VITALS: RESP 16
== END 2021-01-27 22:19 | disposition home or self-care (01) ==
PROVIDERS: Emergency Provider Emergency Medicine; PCP Student in an Organized Health Care Education/Training Program
DX: L25.9 Unspecified contact dermatitis, unspecified cause (principal); E66.9 Obesity, unspecified; F41.9 Anxiety disorder, unspecified; F32.A Depression, unspecified; F17.210 Nicotine dependence, cigarettes, uncomplicated; Z79.52 Long term (current) use of systemic steroids; Z87.442 Personal history of urinary calculi
CPT/HCPCS: 99283